=== PATIENT | female | born 2000 | race Hispanic/Latino ===

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

== ENCOUNTER 2021-08-12 08:16 | Inpatient (IN) | payer MEDICAID ==
[~2021-08-12] VITALS: Ht 162.6 cm; Wt 78.9 kg
[2021-08-12 08:46] LABS: APPEARANCE,URINE Clear (CLEAR); BILIRUBIN,URINE Negative (NEGATIVE); COLOR,URINE Yellow (YELLOW); GLUCOSE, URINE (UA) Negative (NEGATIVE); KETONES,URINE Negative (NEGATIVE); LEUKOCYTE ESTERASE ,URINE Moderate (NEGATIVE); NITRATE,URINE Negative (NEGATIVE); OCCULT BLOOD,URINE Trace (NEGATIVE); PROTEIN,URINE Negative (NEGATIVE)
[2021-08-12 09:14] LABS: BACTERIA,URINE Few /HPF (None Seen); RBC,URINE 0-1 /HPF (0-1)
[2021-08-12] MEDS ORDERED: LACTATED RINGERS 1000ML 1,000 ML IV SCH (11:00)
[2021-08-12] MEDS ORDERED: LACTATED RINGERS 500 ML 500 ML IV PRN (12:30)
[2021-08-12] MEDS ORDERED: PROMETHAZINE HCL 25 MG/ML 1ML AMPULE IM PRN (12:30)
[2021-08-12] MEDS ORDERED: MEPERIDINE-PF 50 MG/ML SYG IVP PRN (12:30)
[2021-08-12] MEDS ORDERED: EPHEDRINE SULFATE 50 MG/ML AMPULE IVP PRN (12:30)
[2021-08-12] MEDS ORDERED: OXYTOCIN-LR 20 UNITS/1000 ML 1,000 ML IV SCH ×2 (12:30→18:30)
[2021-08-12] MEDS ORDERED: NALOXONE HCL 0.4 MG/1 ML ML IV PRN (12:30)
[2021-08-12] MEDS ORDERED: AMPICILLIN 2GM+NS 100ML 100 ML IV SCH (12:30)
[2021-08-12 13:07] LABS: HEMATOCRIT 31.2 % (36-48); MEAN CORPUSCULAR HEMOGLOBIN 26.7 pg (27.0-33.0); MEAN CORPUSCULAR HGB CONC 32.4 g/dL (32.0-36.0); MEAN CORPUSCULAR VOLUME 82.5 fL (80-100); RED BLOOD CELL COUNT(AUTO) 3.78 MIL/uL (4.00-5.50); WHITE BLOOD COUNT (AUTO) 9.3 K/uL (4.8-10.8)
[2021-08-12] MEDS ORDERED: ROPIVACAINE 0.2% 100ML VIAL 100 ML EP SCH (19:00)
[2021-08-12] MEDS ORDERED: FENTANYL CITRATE PF 50 MCG/1 ML 2ML VIAL ONE (19:17)
[2021-08-12] MEDS ORDERED: LIDOCAINE HCL 1% 20 ML VIAL ONE (19:26)
[2021-08-12 20:05] VITALS: BP 111/76
[2021-08-12] MEDS ORDERED: PREN-196 PO (20:16)
[2021-08-12] MEDS ORDERED: LABE100T5 PO (20:16)
[2021-08-12] MEDS ORDERED: AEC81 PO (20:16)
[2021-08-12] MEDS: AMPICILLIN 1GM+NS 50ML 50 ML IV SCH (20:39)
[2021-08-12] MEDS ORDERED: MISOPROSTOL 200 MCG TABLET ONE (22:02)
[2021-08-12] MEDS ORDERED: WITCH HAZEL 1 PAD TP PRN (23:30)
[2021-08-12] MEDS ORDERED: BENZOCAINE/LANOLIN/ALOE VERA 60 ML AEROSOL TP PRN (23:30)
[2021-08-12] MEDS ORDERED: LANOLIN 30GM OINTMENT TP PRN (23:30)
[2021-08-12] MEDS ORDERED: ACETAMINOPHEN WITH CODEINE 1 TAB TAB PO PRN (23:30)
[2021-08-12] MEDS ORDERED: DIPH,PERTUSS(ACELL),TET VAC/PF 0.5 ML VIAL IM PRN (23:30)
[2021-08-12] MEDS ORDERED: ACETAMINOPHEN 325 MG TAB PO PRN (23:30)
[2021-08-13] MEDS: IBUPROFEN 600 MG TABLET PO PRN ×2 (00:31→12:40)
[2021-08-13 06:48] LABS: HEMATOCRIT 31.4 % (36-48); MEAN CORPUSCULAR HEMOGLOBIN 27.1 pg (27.0-33.0); MEAN CORPUSCULAR HGB CONC 32.5 g/dL (32.0-36.0); MEAN CORPUSCULAR VOLUME 83.5 fL (80-100); RED BLOOD CELL COUNT(AUTO) 3.76 MIL/uL (4.00-5.50); RED CELL DISTRIBUTION WIDTH 13.1 % (11.0-15.5); WHITE BLOOD COUNT (AUTO) 14.5 K/uL (4.8-10.8)
[2021-08-13 08:00] VITALS: BP 126/77
[2021-08-13 11:00] VITALS: BP 115/59
[2021-08-13 14:08] LABS: HEPATITIS Bs ANTIGEN SCREEN P Negative (Negative)
[2021-08-13 16:00] VITALS: BP 124/86
[2021-08-13 20:00] VITALS: BP 134/94
[2021-08-13] MEDS: DOCUSATE SODIUM 100 MG CAP PO SCH (20:50)
[2021-08-13 21:00] VITALS: BP 138/79
[2021-08-14] VITALS: BP 130/84
[2021-08-14] MEDS: IBUPROFEN 600 MG TABLET PO PRN ×2 (02:26→09:51)
[2021-08-14 04:00] VITALS: BP 121/72
[2021-08-14 07:30] VITALS: BP 106/58
[2021-08-14] MEDS: DOCUSATE SODIUM 100 MG CAP PO SCH (09:51)
== END 2021-08-14 12:50 | disposition home or self-care (01) | DRG 560 ==
LOC: EDH 08:16 → LDH 08:17 → OBSVTOIN 08:17 → WSH 08-13 02:31
PROVIDERS: ADMIT Obstetrics & Gynecology; ATTEND Obstetrics & Gynecology
PROC: 10E0XZZ Delivery of Products of Conception, External Approach (ICD-10-PCS; principal; 2021-08-12)
PROC: 0KQM0ZZ Repair Perineum Muscle, Open Approach (ICD-10-PCS; 2021-08-12)
PROC: 10907ZC Drainage of Amniotic Fluid, Therapeutic from Products of Conception, Via Natural or Artificial Opening (ICD-10-PCS; 2021-08-12)
PROC: 3E0R3BZ Introduction of Anesthetic Agent into Spinal Canal, Percutaneous Approach (ICD-10-PCS; 2021-08-12)
PROC: 00HU33Z Insertion of Infusion Device into Spinal Canal, Percutaneous Approach (ICD-10-PCS; 2021-08-12)
DX: O98.82 Other maternal infectious and parasitic diseases complicating childbirth (principal); B95.1 Streptococcus, group B, as the cause of diseases classified elsewhere; O70.1 Second degree perineal laceration during delivery; Z37.0 Single live birth; Z3A.38 38 weeks gestation of pregnancy; O99.824 Streptococcus B carrier state complicating childbirth
CPT/HCPCS: 36415; 81001; 82948; 85027; 86592; 86850; 86900; 86901; 87088; 87340; A4314; G0378; J0290; J2175; J2550; J2590; J3010; J7120